=== PATIENT | female | born 1995 ===

== ENCOUNTER 2017-10-31 01:29 | Emergency (ER) | payer OTHER ==
[2017-10-31 02:12] VITALS: BP 129/80; PULSE 66; RESP 18; TEMP 98.5; O2SAT 100
[2017-10-31] MEDS ORDERED: Alum-Mag Hydrox-Simethicone Susp (30 mL) PO STA (02:27)
--- NOTE | 2017-10-31 02:32 | ED PDOC ---
HPI: Abdomen Time Seen by Provider: 10/31/17 02:14 Chief Complaint (Nursing): Abdominal Pain Chief Complaint (Provider): abdominal pain History Per: Patient History/Exam Limitations: no limitations Onset/Duration Of Symptoms: Hrs (7) Current Symptoms Are (Timing): Still Present Location Of Pain/Discomfort: Epigastric Additional History Per: Patient Additional Complaint(s): 21 y/o female presents for evaluation of epigastric abdominal pain x 7 hours. Associated radiation of pain up to chest and back. Patient states pain started after eating pizza for dinner, unrelieved with Pepcid tablets prescribed for similar symptoms at ED visit last week. DEnies fever, nausea/vomiting, chest pain, shortness of breath, palpitations, urinary symptoms. Past Medical History Reviewed: Historical Data, Nursing Documentation, Vital Signs Vital Signs: Last Vital Signs Temp 98.5 F 10/31/17 02:09 Pulse 66 10/31/17 02:09 Resp 18 10/31/17 02:09 BP 129/80 10/31/17 02:09 Pulse Ox 100 10/31/17 03:35 - Medical History PMH: No Chronic Diseases - Surgical History Surgical History: No Surg Hx - Family History Family History: States: Unknown Family Hx - Home Medications Home Medications: Ambulatory Orders Medication Instructions Recorded Famotidine [Pepcid] 20 mg PO DAILY #20 tab 04/08/15 Mag Hydrox/Al Hydrox/Simeth 30 ml PO BID #1 bottle 04/08/15 [Maalox Advanced 148 ml] Nitrofurantoin Macrocrystals 1 cap PO BID #14 cap 04/08/15 [Macrobid] Famotidine [Pepcid] 20 mg PO BID #28 tab 10/23/17 - Allergies Allergies/Adverse Reactions: Allergies Allergy/AdvReac Type Severity Reaction Status Date / Time No Known Allergies Allergy Verified 10/31/17 02:07 Review of Systems ROS Statement: Except As Marked, All Systems Reviewed And Found Negative Gastrointestinal: Positive for: Abdominal Pain Physical Exam - Reviewed Nursing Documentation Reviewed: Yes Vital Signs Reviewed: Yes - Physical Exam Appears: Positive for: Well, Non-toxic, No Acute Distress Head Exam: Positive for: ATRAUMATIC, NORMAL INSPECTION, NORMOCEPHALIC Skin: Positive for: Normal Color Eye Exam: Positive for: Normal appearance ENT: Positive for: Normal ENT Inspection Cardiovascular/Chest: Positive for: Regular Rate, Rhythm Respiratory: Positive for: Normal Breath Sounds Gastrointestinal/Abdominal: Positive for: Bowel Sounds, Soft, Tenderness ( epigastric) Back: Positive for: Normal Inspection Extremity: Positive for: Normal ROM Neurologic/Psych: Positive for: Alert, Oriented - Laboratory Results Result Diagrams: 10/31/17 03:00 10/31/17 03:00 - ECG O2 Sat by Pulse Oximetry: 100 - Progress ED Course And Treament: labs, GI cocktail On re-eval, patient resting comfortably; states pain resolved and she would like to be discharged at this time. Patient educated on findings, discharged with instructions to continue previous medications. Advised diet modification Follow up PMD 2-3 days. Return precautions given Disposition - Clinical Impression Clinical Impression: Gastritis - Patient ED Disposition Is Patient to be Admitted: No Counseled Patient/Family Regarding: Studies Performed, Diagnosis, Need For Followup - Disposition Referrals: Rebecca Tejeda MD [Primary Care Provider] - Disposition: Routine/Home Disposition Time: 03:35 Condition: IMPROVED Instructions: Gastritis Forms: [facility] [facility] (Norwegian)
[2017-10-31] MEDS ORDERED: Alum-Mag Hydrox-Simethicone Susp (30 mL) ONE (02:46)
[2017-10-31 03:05] LABS: BASO % 0.4 % (0.0-2.0); EOS % 0.7 % (0.0-4.0); HEMOGLOBIN 13.2 g/dL (12.0-16.0); LYMPH % 40.6 % (20.0-40.0); MEAN CELL VOLUME 94.8 fl (81.0-99.0); MEAN CORPUSCULAR HEMOGLOBIN 33.9 pg (27.0-31.0); MEAN CORPUSCULAR HGB CONC 35.8 g/dL (33.0-37.0); MEAN PLATELET VOLUME 7.3 fl (7.2-11.7); MONO # 0.7 K/uL (0.0-0.8); NEUT # 3.6 K/uL (1.8-7.0); NEUT % 48.3 % (50.0-75.0); NRBC % 0.1 % (0.0-0.0); RBC 3.89 Mil/uL (3.80-5.20); RED CELL DISTRIBUTION WIDTH 13.1 % (11.5-14.5); WHITE BLOOD COUNT 7.4 K/uL (4.8-10.8)
[2017-10-31 03:13] LABS: ALB/GLOB RATIO 1.3 (1.0-2.1); ALBUMIN 4.1 g/dL (3.5-5.0); ALT/SGPT 30 U/L (9-52); AST/SGOT 22 U/L (14-36); BLOOD UREA NITROGEN 11 mg/dl (7-17); CALCIUM 9.1 mg/dL (8.4-10.2); GFR AFRICAN-AMERICAN > 60; GFR NON-AFRICAN AMERICAN > 60; LIPASE 79 U/L (23-300)
== END 2017-10-31 03:44 | disposition home or self-care (01) ==
LOC: H.ER 01:29
DX: K29.70 Gastritis, unspecified, without bleeding (principal)